=== PATIENT | male | born 1995 | race Asian ===

== ENCOUNTER 2020-02-20 19:53 | Inpatient (IN) ==
[2020-02-20] MEDS ORDERED: PANTOPRAZOLE 40 MG VIAL IV STA (20:14)
[2020-02-20] MEDS ORDERED: ONDANSETRON 4 MG/2 ML VIAL IV STA (20:14)
[2020-02-20] MEDS ORDERED: SODIUM CHLORIDE 0.9% 500 ML IV STA (20:14)
[2020-02-20 20:49] LABS: Basophils % 0.2 % (0.0-0.8); Eosinophils % 0.1 % (0.00-10.9); Hemoglobin 7.1 GM/DL (14.0-18.0); Immature Granulocytes % 2.7 %; Immature Granulocytes Absolute 0.36 #; Lymphocytes # 2.2 10*3/uL (1.4-4.0); Lymphocytes % 16.8 % (21.2-54.2); Mean Corpuscular HGB Conc 28.4 GM/DL (32-36); Mean Corpuscular Volume 63.3 FL (87-102); Mean Platelet Volume 9.5 FL (9.6-12.0); Monocytes % 8.1 % (1.7-12.7); NRBC # 0.17 10*3/uL; Neutrophils % 72.1 % (38.7-73.9); Platelet Count 435 T/CUMM (130-400); Red Blood Count 3.95 MC/CUMM (3.8-5.5); Red Cell Distribution Width 17.2 % (9.3-17.3); White Blood Count 13.3 T/CUMM (4-12)
[2020-02-20 20:58] LABS: INR 0.9; PT Patient Result 9.9 SECS (9.8-11.9)
[2020-02-20 21:14] LABS: Band Neutrophils 1 % (0-10); Lymphocytes 20 % (20-55); Nucleated Red Blood Cells 1 (0-5); Platelet Estimate Increased; Segmented Neutrophils 77 % (50-85); Total Cells Counted 100
[2020-02-20 21:15] LABS: Hypochromasia 1+; Microcytosis 1+
[2020-02-20 21:17] LABS: Alanine Aminotransferase 41 U/L (16-61); Albumin 3.1 G/DL (3.4-5.0); Alkaline Phosphatase 100 U/L (45-117); Amylase 166 U/L (25-115); Aspartate Amino Transferase 13 U/L (0-37); Bilirubin,Total < 0.39 MG/DL (0.2-1.0); Blood Urea Nitrogen 22 MG/DL (7-18); Calcium 8.3 MG/DL (8.5-10.1); Estimated Glom Filtration Rate 132 ML/MIN; Glucose 163 MG/DL (74-106); Osmolality,Calculated 285.4 MOS/KG (273-304); Total Protein 6.3 G/DL (6.4-8.3)
[2020-02-20] MEDS ORDERED: SODIUM CHLORIDE 0.9% 1,000 ML IV PRN (21:47)
[2020-02-20] MEDS ORDERED: NICOTINE 21 MG/24 HR PATCH TRANSDERM PRN (21:49)
[2020-02-20] MEDS ORDERED: ZALEPLON 5 MG CAPSULE PO PRN (21:49)
[2020-02-20] MEDS ORDERED: DOCUSATE SODIUM 100 MG CAPSULE PO PRN (21:49)
[2020-02-20] MEDS ORDERED: guaiFENesin/DM ER 600-30 MG TABLET PO PRN (21:49)
[2020-02-20] MEDS ORDERED: ACETAMINOPHEN 325 MG TABLET PO PRN (21:49)
[2020-02-20] MEDS ORDERED: ONDANSETRON 4 MG/2 ML VIAL IV PRN (21:49)
[2020-02-20] MEDS ORDERED: DEXTROSE 50% 25 GM/50 ML VIAL IV PRN (21:49)
[2020-02-20] MEDS ORDERED: hydrALAZINE 20 MG/1 ML VIAL IV PRN (21:49)
[2020-02-20] MEDS ORDERED: GLUCAGON 1 MG VIAL IM PRN (21:49)
[2020-02-20] MEDS ORDERED: predniSONE 10 MG TABLET PO PRN (21:53)
[2020-02-21] MEDS ORDERED: POTASSIUM CHLORIDE INJ 10 MEQ in DEXTROSE 5% NACL 0.9% 1,000 ML IV SCH (06:30)
[2020-02-21] MEDS ORDERED: MESALAMINE 800 MG TABLET PO SCH (09:00)
[2020-02-21] MEDS ORDERED: PANTOPRAZOLE 40 MG VIAL IV SCH (09:00)
[2020-02-21] MEDS ORDERED: predniSONE 20 MG TABLET PO SCH (09:00)
[2020-02-21 10:00] LABS: Basophils % 0.2 % (0.0-0.8); Eosinophils # 0.1 10*3/uL (0.0-0.87); Eosinophils % 0.8 % (0.00-10.9); Hematocrit 27.3 VOL% (42.0-52.0); Hemoglobin 8.2 GM/DL (14.0-18.0); Immature Granulocytes % 2.2 %; Immature Granulocytes Absolute 0.28 #; Lymphocytes # 3.2 10*3/uL (1.4-4.0); Lymphocytes % 25.5 % (21.2-54.2); Mean Corpuscular Volume 68.9 FL (87-102); Monocytes % 10.3 % (1.7-12.7); NRBC # 0.13 10*3/uL; Platelet Count 315 T/CUMM (130-400); Red Blood Count 3.96 MC/CUMM (3.8-5.5); Red Cell Distribution Width 24.4 % (9.3-17.3); White Blood Count 12.6 T/CUMM (4-12)
[2020-02-21 10:19] LABS: Albumin 2.4 G/DL (3.4-5.0); Bilirubin,Total 0.4 MG/DL (0.2-1.0); Calcium 8.6 MG/DL (8.5-10.1); Osmolality,Calculated 274.7 MOS/KG (273-304); Total Protein 5.7 G/DL (6.4-8.3)
[2020-02-21 10:42] LABS: Atypical Lymphocytes Few; Band Neutrophils 14 % (0-10); Hypochromasia 1+; Lymphocytes 27 % (20-55); Microcytosis 1+; Myelocytes 1 %; Polychromasia Slight; Segmented Neutrophils 53 % (50-85); Target Cells Slight; Total Cells Counted 100
[2020-02-21 10:43] LABS: Platelet Estimate Normal
[2020-02-21 11:20] VITALS: BP 113/74
== END 2020-02-21 14:57 | disposition home or self-care (01) | DRG 386 ==
LOC: N.ED 19:53 → N.EDINP 21:49 → N.3E 02-21 00:26
PROVIDERS: ADMIT Internal Medicine; ATTEND Internal Medicine